=== PATIENT | female | born 1970 | race Caucasian/White ===

== ENCOUNTER 2016-10-27 13:12 | Emergency (ER) | payer OTHER, SELFPAY ==
[2016-10-27] MEDS ORDERED: Ondansetron 4 MG/2 ML SDV IVPUSH ONE ×2 (13:51→14:35)
--- NOTE | 2016-10-27 13:59 | EDM.PDOC ---
ED HPI GENERAL MEDICAL PROBLEM - General Chief Complaint: Abdominal Pain Stated Complaint: ABDOMINAL PAIN,NAUSEA Time Seen by Provider: 10/27/16 13:39 Source of Information: Reports: Patient, RN Notes Reviewed History Limitations: Reports: No Limitations - History of Present Illness INITIAL COMMENTS - FREE TEXT/NARRATIVE: The patient states that she was seen at the [place], [place] ER for abdominal pain on , 10/17/2016. She states that x-rays demonstrated that she was full of stool, and she was also told that her bilirubin was "high". She states that she received enemas in the ER, after which she has been taking oral magnesium 400 mg BID. She now presents with generalized abdominal pain. She states that she has not had a bowel movement since , 10/24/2016. No recent fever, chills, nausea , vomiting, urinary symptoms, cough, or chest pain. She states that she does not have a history of chronic constipation. She has never previously had a colonoscopy. The patient's PCP is in [place], [place]. Abdomen Pain Score (Numeric/FACES): 10 - Related Data Allergies Allergy/AdvReac Type Severity Reaction Status Date / Time No Known Allergies Allergy Verified 06/26/16 04:00 CDT Home Meds: Home Meds Sulfamethoxazole/Trimethoprim [Bactrim Ds Tablet] 1 tab PO Q12H #10 tablet 10/27 [Rx] Past Medical History Gastrointestinal History: Reports: Cirrhosis (alcoholic) CLINICAL PHARMACOLOGIST History: Reports: Psychiatric History: Reports: Depression - Past Surgical History GI Surgical History: Reports: Appendectomy Female Surgical History: Reports: Section (x 1), D&C (x 2), Hysterectomy Musculoskeletal Surgical History: Reports: Arthroscopic Procedure (left wrist x 2) Social & Family History - Family History Family Medical History: Noncontributory - Tobacco Use Smoking Status *Q: Current Every Day Smoker Years of Tobacco use: 25 Packs/Tins Daily: 0.5 - Caffeine Use Caffeine Use: Reports: None - Alcohol Use Alcohol Use History: Yes Date/Time of Last Drink Comment: History of alcoholism. Last drink approximately July 2016 - Recreational Drug Use Recreational Drug Use: Yes Drug Use in Last 12 Months: No Recreational Drug Type: Reports: Marijuana/Hashish - Living Situation & Occupation Living situation: Reports: , Alone Occupation: Employed ([employer]) ED ROS GENERAL - Review of Systems Review Of Systems: See Below Constitutional: Reports: No Symptoms. Denies: Fever, Chills HEENT: Reports: No Symptoms Respiratory: Reports: No Symptoms. Denies: Shortness of Breath, Cough Cardiovascular: Reports: No Symptoms. Denies: Chest Pain Endocrine: Reports: No Symptoms GI/Abdominal: Reports: Abdominal Pain (as per the HPI), Constipation (as per the HPI). Denies: Diarrhea, Nausea, Vomiting : Reports: No Symptoms Musculoskeletal: Reports: No Symptoms Skin: Reports: No Symptoms Neurological: Reports: No Symptoms Psychiatric: Reports: No Symptoms Hematologic/Lymphatic: Reports: No Symptoms Immunologic: Reports: No Symptoms ED EXAM, GI/ABD - Physical Exam Exam: See Below Exam Limited By: No Limitations General Appearance: Alert, WD/WN, Mild Distress (moaning) Eyes: Bilateral: Normal Appearance, EOMI Ears: Normal External Exam, Hearing Grossly Normal Nose: Normal Inspection, No Blood Throat/Mouth: Normal Inspection, Normal Lips, Normal Voice, No Airway Compromise Head: Atraumatic, Normocephalic Neck: Normal Inspection, Full Range of Motion Respiratory/Chest: No Respiratory Distress, Lungs Clear, Normal Breath Sounds, No Accessory Muscle Use Cardiovascular: Normal Peripheral Pulses, Regular Rate, Rhythm, No Gallop, No JVD, No Murmur, No Rub GI/Abdominal: Normal Bowel Sounds, Soft, No Organomegaly, No Abnormal Bruit, No Mass, Tenderness (The patient reports severe tenderness to even mild palpation anywhere on her abdomen), Distention (mild) (Female) Exam: Deferred Rectal (Female) Exam: Deferred Back Exam: Normal Inspection, Full Range of Motion Extremities: Normal Inspection, Normal Range of Motion, No Pedal Edema, Normal Capillary Refill Neurological: Alert, Oriented, Normal Cognition, No Motor/Sensory Deficits Psychiatric: Depressed Mood Skin Exam: Warm, Dry, Intact, Normal Color, No Rash Lymphatic: No Adenopathy Course - Vital Signs Last Recorded V/S: Last Vital Signs Temp 35.9 C 10/27/16 13:15 Pulse 62 10/27/16 18:04 Resp 20 10/27/16 13:15 BP 125/74 10/27/16 18:04 Pulse Ox 94 L 10/27/16 18:04 - Orders/Labs/Meds Labs: Laboratory Tests 10/27/16 10/27/16 10/27/16 Range/Units 14:10 14:10 15:30 WBC 16.65 H (3.98-10.04) K/mm3 RBC 4.10 (3.98-5.22) M/mm3 Hgb 13.6 (11.2-15.7) gm/L Hct 39.2 (34.1-44.9) % MCV 95.6 H (79.4-94.8) fl MCH 33.2 H (25.6-32.2) pg MCHC 34.7 (32.2-35.5) g/dl RDW Std Deviation 50.9 H (36.4-46.3) fL Plt Count 91 L (182-369) K/mm3 MPV 11.3 (9.4-12.3) fl Neutrophils % (Manual) 86 H (40-60) % Band Neutrophils % 0 (0-10) % Lymphocytes % (Manual) 10 L (20-40) % Atypical Lymphs % 0 % Monocytes % (Manual) 4 (2-10) % Eosinophils % (Manual) 0 L (0.7-5.8) % Basophils % (Manual) 0 L (0.1-1.2) Platelet Estimate Decreased Plt Morphology Comment See note Poikilocytosis 1+ slight Anisocytosis 2+ moderate Macrocytosis 2+ moderate Ovalocytes 1+ slight RBC Morph Comment Not Reportable PT 14.4 H (8.0-13.0) SECONDS INR 1.30 APTT 36 (22-36) SECONDS Sodium 139 (136-145) mEq/L Potassium 3.3 L (3.5-5.1) mEq/L Chloride 105 (98-107) mEq/L Carbon Dioxide 25 (21-32) mEq/L Anion Gap 12.3 (5-15) BUN 6 L (7-18) mg/dL Creatinine 0.8 (0.55-1.02) mg/dL Est Cr Clr Drug Dosing 62.44 mL/min Estimated GFR (MDRD) > 60 (>60) mL/min BUN/Creatinine Ratio 7.5 L (14-18) Glucose 111 H (74-106) mg/dL Calcium 8.7 (8.5-10.1) mg/dL Total Bilirubin 3.8 H (0.2-1.0) mg/dL AST 41 H (15-37) U/L ALT 25 (14-59) U/L Alkaline Phosphatase 137 H (46-116) U/L Total Protein 6.9 (6.4-8.2) g/dl Albumin 3.1 L (3.4-5.0) g/dl Globulin 3.8 gm/dL Albumin/Globulin Ratio 0.8 L (1-2) Lipase 206 (73-393) U/L Urine Color (Yellow) Urine Appearance (Clear) Urine pH (5.0-8.0) Ur Specific [place] (1.005-1.030) Urine Protein (Negative) Urine Glucose (UA) (Negative) Urine Ketones (Negative) Urine Occult Blood (Negative) Urine Nitrite (Negative) Urine Bilirubin (Negative) Urine Urobilinogen (0.2-1.0) Ur Leukocyte Esterase (Negative) Urine RBC (0-5) /hpf Urine WBC (0-5) /hpf Ur Epithelial Cells (0-5) /hpf Urine Bacteria (FEW) /hpf Urine Mucus (FEW) /hpf //17 Range/Units 16:10 WBC (3.98-10.04) K/mm3 RBC (3.98-5.22) M/mm3 Hgb (11.2-15.7) gm/L Hct (34.1-44.9) % MCV (79.4-94.8) fl MCH (25.6-32.2) pg MCHC (32.2-35.5) g/dl RDW Std Deviation (36.4-46.3) fL Plt Count (182-369) K/mm3 MPV (9.4-12.3) fl Neutrophils % (Manual) (40-60) % Band Neutrophils % (0-10) % Lymphocytes % (Manual) (20-40) % Atypical Lymphs % % Monocytes % (Manual) (2-10) % Eosinophils % (Manual) (0.7-5.8) % Basophils % (Manual) (0.1-1.2) Platelet Estimate Plt Morphology Comment Poikilocytosis Anisocytosis Macrocytosis Ovalocytes RBC Morph Comment PT (8.0-13.0) SECONDS INR APTT (22-36) SECONDS Sodium (136-145) mEq/L Potassium (3.5-5.1) mEq/L Chloride (98-107) mEq/L Carbon Dioxide (21-32) mEq/L Anion Gap (5-15) BUN (7-18) mg/dL Creatinine (0.55-1.02) mg/dL Est Cr Clr Drug Dosing mL/min Estimated GFR (MDRD) (>60) mL/min BUN/Creatinine Ratio (14-18) Glucose (74-106) mg/dL Calcium (8.5-10.1) mg/dL Total Bilirubin (0.2-1.0) mg/dL AST (15-37) U/L ALT (14-59) U/L Alkaline Phosphatase (46-116) U/L Total Protein (6.4-8.2) g/dl Albumin (3.4-5.0) g/dl Globulin gm/dL Albumin/Globulin Ratio (1-2) Lipase (73-393) U/L Urine Color Dark yellow (Yellow) Urine Appearance Cloudy H (Clear) Urine pH 7.0 (5.0-8.0) Ur Specific [place] 1.020 (1.005-1.030) Urine Protein Negative (Negative) Urine Glucose (UA) Negative (Negative) Urine Ketones Negative (Negative) Urine Occult Blood Negative (Negative) Urine Nitrite Negative (Negative) Urine Bilirubin Negative (Negative) Urine Urobilinogen 2.0 H (0.2-1.0) Ur Leukocyte Esterase Negative (Negative) Urine RBC 0-5 (0-5) /hpf Urine WBC 5-10 H (0-5) /hpf Ur Epithelial Cells 0-5 (0-5) /hpf Urine Bacteria Many H (FEW) /hpf Urine Mucus Few (FEW) /hpf Meds: Medications Discontinued Medications Generic Name Dose Route Start Last Admin Trade Name Freq PRN Reason Stop Dose Admin Diatrizoate Meglum/Diatrizoate Sod 90 ml 10/27/16 15:23 10/27/16 15:56 Gastrografin 37% PO 10/27/16 15:24 90 ml ONETIME ONE Administration Sodium Chloride 1,000 mls @ 150 mls/hr 10/27/16 14:00 10/27/16 14:17 Normal Saline IV 150 mls/hr ASDIRECTED FRANCI Administration Iopamidol 100 ml 10/27/16 15:23 10/27/16 15:56 Isovue-300 (61%) IVPUSH 10/27/16 15:24 100 ml ONETIME ONE Administration Ketorolac Tromethamine 30 mg 10/27/16 14:32 10/27/16 14:47 Toradol IVPUSH 10/27/16 14:33 30 mg ONETIME ONE Administration Ondansetron HCl 4 mg 10/27/16 13:51 10/27/16 14:17 Zofran IVPUSH 10/27/16 13:52 4 mg ONETIME ONE Administration Ondansetron HCl 4 mg 10/27/16 14:35 10/27/16 14:41 Zofran IVPUSH 10/27/16 14:36 4 mg ONETIME ONE Administration Sodium Chloride 10 ml 10/27/16 15:23 10/27/16 15:56 Saline Flush FLUSH 10 ml ONETIME PRN Administration IV FLUSH Trimethoprim/Sulfamethoxazole 1 tab 10/27/16 17:09 10/27/16 17:57 Septra Ds PO 10/27/16 17:10 1 tab ONETIME ONE Administration - Re-Assessments/Exams Free Text/Narrative Re-Assessment/Exam: 10/27/16 13:53 The patient is complaining of generalized abdominal pain, and on examination, while her abdomen is soft with normoactive bowel sounds, she writhes off the gurney with minimal palpation. She was moaning continuously during my history and examination. Histrionics are certainly involved. I am therefore withholding opioids at this time. 10/27/16 14:36 The patient just had a large emesis, which included some undigested food, along with much of the oral contrast that she has been drinking. She received Zofran 4 mg IVP earlier; I have ordered an additional 4 mg IVP. 10/27/16 17:03 CT of the abdomen and pelvis with (oral) and IV contrast is read by Dr. Noguera as: 1. Slight cardiomegaly. 2. Multiple gallstones within or near the gallbladder neck. Gallbladder slightly dilated. Calcification is noted within the duodenum and difficult to exclude a stone that has passed through the ampulla of Vater as the etiology. Ultrasound could be obtained to further evaluate. 3. Cirrhosis is felt to be present within the liver. Varicosities are seen at the gastroesophageal junction surrounding a small hiatal hernia. Splenomegaly is noted. 4. Possible bowel wall thickening within the right colon which is nonspecific regarding etiology. 10/27/16 17:31 Test results discussed with the patient. The patient appears to have a UTI. A urine culture has been ordered. I will start the patient on empiric Bactrim. The CT scan indicates that the patient has cirrhosis, her total bilirubin is elevated at 3.8, and her INR elevated at 1.30. I will refer the patient to Dr. Damon for further hepatic evaluation CT scan indicates that the patient passed a gallstone, and while this would certainly be a painful process, would not explain the patient's presentation, with whole-abdominal pain and tenderness. The patient herself acknowledges this. The cause of the patient's pain, which resolved after treatment with Toradol, is unclear. The patient may benefit from cholecystectomy, provided she is otherwise surgically fit. Departure - Departure Time of Disposition: 17:33 Disposition: Home, Self-Care 01 Condition: Good Clinical Impression: Cholelithiasis, Hepatic cirrhosis, UTI (urinary tract infection), Abdominal pain of unknown etiology - Discharge Information Prescriptions: Sulfamethoxazole/Trimethoprim [Bactrim Ds Tablet] 1 tab PO Q12H #10 tablet Instructions: Urinary Tract Infection, Adult Referrals: PCP,None [Primary Care Provider] - Humble Damon [Physician] - Forms: ED Department Discharge Additional Instructions: You were seen in the emergency room for abdominal pain and no bowel movement since . Workup in the ER included blood work, a urinalysis, and a CT scan of your abdomen and pelvis. You were found to have a urinary tract infection. You have been started on the antibiotic Bactrim. Take one tablet every 12 hours, as prescribed. Finish the entire prescription unless told otherwise by a doctor. Stay adequately hydrated. A sample of your urine was sent for culture. Contact the office of Dr. Damon this coming 10/30/2016, to check on the urine culture results, to make sure that you are on the correct antibiotic. The CT scan and blood work indicate that you have cirrhosis of the liver. Follow -up with Dr. Damon for further evaluation and treatment. Do not drink alcohol. The cause of your abdominal pain is unclear. It may have been due to passing a gallstone. You may benefit from surgical removal of your gallbladder. Talk to Dr. Damon about this. If any other problems, please do not hesitate to return to the ER.
[2016-10-27] MEDS ORDERED: Sodium Chloride 0.9% 1,000 ML IV SCH (14:00)
[2016-10-27] MEDS ORDERED: Ketorolac 30 MG/ML SDV IVPUSH ONE (14:32)
[2016-10-27] MEDS ORDERED: Iopamidol 612 MG/ML 100 ML Bottle IVPUSH ONE (15:23)
[2016-10-27] MEDS ORDERED: Diatrizoate Meglumine/Diatrizoate Sodium 37% 120 ML Bottle PO ONE (15:23)
[2016-10-27] MEDS ORDERED: Sodium Chloride 0.9% 10 ML Syringe FLUSH PRN (15:23)
--- NOTE | 2016-10-27 16:51 | CT ---
CT abdomen and pelvis Technique: Multiple axial sections were obtained from above the dome of the diaphragm inferiorly through the pubic symphysis. Delayed images were also obtained through the abdomen and pelvis. Comparison: No previous study is available. Findings: Gallbladder is slightly dilated. Multiple gallstones are seen which appear to be within or next to the gallbladder neck. Common bile duct is slightly prominent measuring 8.4 mm. There is a calcification being seen within the duodenum measuring 5 mm of uncertain etiology but difficult to exclude a CBD stone that has passed through the ampulla of Vater. Small portion of the visualized lung bases are clear. Heart is mildly enlarged. Liver appears to be cirrhotic. Varices are identified at the gastroesophageal junction surrounding a small hiatal hernia. Spleen is enlarged with length of 14.5 cm. Kidneys show symmetric contrast enhancement without hydronephrosis or mass. Pancreas appears within normal limits. Aorta shows atherosclerotic change without aneurysmal dilatation. No retroperitoneal adenopathy or mesenteric abnormalities are seen. No pelvic mass or adenopathy is seen. Questionable bowel wall thickening is noted within the right colon. No bowel dilatation is seen. No free fluid is seen. Delayed images shows contrast within the ureters and bladder. Bone window settings were reviewed and appears within normal limits for the patient's age. Impression: 1. Slight cardiomegaly. 2. Multiple gallstones within or near the gallbladder neck. Gallbladder is slightly dilated. Calcification is noted within the duodenum and difficult to exclude a stone that has passed through the ampulla of Vater as the etiology. Ultrasound could be obtained to further evaluate. 3. Cirrhosis is felt to be present within the liver. Varicosities are seen at the gastroesophageal junction surrounding a small hiatal hernia. Splenomegaly is noted. 4. Possible bowel wall thickening within the right colon which is nonspecific regarding etiology. Diagnostic code #5
[2016-10-27] MEDS ORDERED: Sulfamethoxazole/Trimethoprim 800-160 MG Tab PO ONE (17:09)
[2016-10-27 18:05] VITALS: BP 125/74
== END 2016-10-27 18:10 | disposition home or self-care (01) ==
LOC: JD.ED 13:12
DX: K80.20 Calculus of gallbladder without cholecystitis without obstruction (principal); K74.60 Unspecified cirrhosis of liver; N39.0 Urinary tract infection, site not specified; F17.210 Nicotine dependence, cigarettes, uncomplicated; Z90.49 Acquired absence of other specified parts of digestive tract; Z90.710 Acquired absence of both cervix and uterus
CPT/HCPCS: 36415; 74177; 80053; 81001; 83690; 85025; 85610; 85730; 96361; 96374; 96375; 99284; A9270; J1885; J2405; J7040; J7050; P9612; Q9963; Q9967